=== PATIENT | male | born 1945 | race Caucasian/White ===

== ENCOUNTER 2024-07-13 13:53 | Inpatient (IN) | payer MEDICARE, BC ==
[~2024-07-13] VITALS: Ht 177.8 cm; Wt 66.0 kg
[2024-07-13] MEDS: IV NORMAL SALINE 1000 ML BAG IV ONE (14:29)
[2024-07-13] MEDS ORDERED: BISA10SU61 RC (14:50)
[2024-07-13] MEDS ORDERED: HYDR30OI5 TP (14:50)
[2024-07-13] MEDS ORDERED: DICY20TA11 PO (14:50)
[2024-07-13] MEDS ORDERED: DOCU-141 PO (14:50)
[2024-07-13] MEDS ORDERED: AMIT25TA9 PO (14:50)
[2024-07-13] MEDS ORDERED: ZOLP5TAB2 PO (14:50)
[2024-07-13] MEDS ORDERED: MAG30ORA PO (14:50)
[2024-07-13] MEDS ORDERED: LORA0.5T48 PO (14:50)
[2024-07-13] MEDS ORDERED: ALPR0.5T8 PO (14:50)
[2024-07-13] MEDS ORDERED: GABA300C PO (14:50)
[2024-07-13] MEDS ORDERED: METO-357 PO (14:50)
[2024-07-13] MEDS ORDERED: LUBI24CA5 PO (14:50)
[2024-07-13] MEDS ORDERED: CLON0.1T PO (14:50)
[2024-07-13] MEDS ORDERED: OXYC-128 PO (14:50)
[2024-07-13] MEDS ORDERED: HYDR-4077 PO (14:50)
[2024-07-13] MEDS ORDERED: METR-147 PO (14:50)
[2024-07-13] MEDS ORDERED: DULO60CA45 PO (14:50)
[2024-07-13] MEDS ORDERED: PANT40TA49 PO (14:50)
[2024-07-13] MEDS ORDERED: ACET-3117 PO (14:50)
[2024-07-13 15:02] LABS: BASOPHILS % (AUTO) 0.5 % (0.0-2.0); EOSINOPHILS # (AUTO) 0.2 K/uL (0.0-0.7); EOSINOPHILS % (AUTO) 3.6 % (0.0-7.0); HEMATOCRIT 37.7 % (36.7-47.1); HEMOGLOBIN 12.2 g/dL (12.5-16.3); MEAN CORPUSCULAR HEMOGLOBIN 28.8 uug (23.8-33.4); MEAN CORPUSCULAR HGB CONC 33 g/dL (32.5-36.3); MEAN CORPUSCULAR VOLUME 88.6 fL (73.0-96.2); MONOCYTES # (AUTO) 0.4 K/uL (0.1-1.30); MONOCYTES % (AUTO) 6.5 % (0.0-11.0); NEUTROPHILS # (AUTO) 4.5 K/uL (1.8-8.9); NEUTROPHILS % (AUTO) 72.4 % (38.5-71.5); PLATELET COUNT (AUTO) 188 K/uL (152-348); RED BLOOD CELL COUNT(AUTO) 4.26 MIL/uL (4.06-5.63); RED CELL DISTRIBUTION WIDTH 17.6 % (12.1-16.2); WHITE BLOOD COUNT (AUTO) 6.2 K/uL (3.6-10.2)
[2024-07-13 15:09] LABS: CALCIUM 8.8 mg/dL (8.5-10.1); CARBON DIOXIDE 31 mmol/L (21-32); CHLORIDE 104 mmol/L (98-107); CREATININE 0.7 mg/dL (0.6-1.3); GLUCOSE 135 mg/dL (74-106); SODIUM SERUM 140 mmol/L (136-145); UREA NITROGEN, BLOOD 8 mg/dL (7-18)
[2024-07-13 15:13] LABS: DIFFERENTIAL COMMENT 1
[2024-07-13 15:24] LABS: ALANINE AMINOTRANSFERASE 24 U/L (16-63); ALBUMIN 2.9 g/dL (3.4-5.0); ALKALINE PHOSPHATASE 46 U/L (50-136); ASPARTATE AMINOTRANSFERASE 18 U/L (15-37); BILIRUBIN,DIRECT 0.1 mg/dL (0.0-0.2); BILIRUBIN,TOTAL 0.3 mg/dL (0.2-1.0); NT-PRO BNP 3606 pg/mL (0-125); TOTAL PROTEIN, SERUM 5.6 g/dL (6.4-8.2)
[2024-07-13] MEDS ORDERED: ONDANSETRON 4 MG/2 ML VIAL IV PRN (16:45)
[2024-07-13] MEDS ORDERED: ACETAMINOPHEN 325 MG TABLET PO PRN (16:45)
[2024-07-13] MEDS ORDERED: BISACODYL 10 MG SUPP.RECT RC PRN (16:45)
[2024-07-13] MEDS ORDERED: hydrALAZINE HCL 20 MG/1 ML VIAL IV PRN (16:45)
[2024-07-13] MEDS ORDERED: DOCUSATE SODIUM 100 MG CAPSULE PO SCH (17:00)
[2024-07-13 20:50] VITALS: BP 143/90; TEMP 97.4; O2SAT 96
[2024-07-13] MEDS ORDERED: AMITRIPTYLINE HCL 25 MG TABLET ONE (23:27)
[2024-07-13] MEDS: GABAPENTIN 300 MG CAPSULE PO SCH (23:34)
[2024-07-13] MEDS: hydrALAZINE HCL 50 MG TABLET PO SCH (23:35)
[2024-07-13] MEDS: AMITRIPTYLINE HCL 25 MG TABLET PO SCH (23:35)
[2024-07-13] MEDS: DOCUSATE SODIUM 100 MG CAPSULE PO SCH (23:36)
[2024-07-13] MEDS: HEPARIN SODIUM,PORCINE 5,000 UNITS/ML VIAL SQ SCH (23:42)
[2024-07-14] MEDS: MORPHINE SULFATE 2 MG/1 ML DISP.SYRIN IVP PRN (03:18)
[2024-07-14] MEDS: IV NS 1000 ML 1,000 ML IV SCH (03:23)
[2024-07-14] MEDS: LORAZEPAM 0.5 MG TABLET PO PRN (04:50)
[2024-07-14 06:00] VITALS: BP 106/59; TEMP 97.8; O2SAT 93
[2024-07-14 07:30] LABS: BASOPHILS # (AUTO) 0.1 K/UL (0.0-0.2); BASOPHILS % (AUTO) 0.8 % (0.0-2.0); EOSINOPHILS # (AUTO) 0.3 K/uL (0.0-0.7); EOSINOPHILS % (AUTO) 4.6 % (0.0-7.0); HEMOGLOBIN 11.5 g/dL (12.5-16.3); LYMPHOCYTES # (AUTO) 1.2 K/uL (0.8-4.8); LYMPHOCYTES % (AUTO) 18.8 % (20.5-51.5); MEAN CORPUSCULAR HEMOGLOBIN 29.7 uug (23.8-33.4); MEAN CORPUSCULAR HGB CONC 34 g/dL (32.5-36.3); MONOCYTES # (AUTO) 0.5 K/uL (0.1-1.30); MONOCYTES % (AUTO) 7.1 % (0.0-11.0); NEUTROPHILS # (AUTO) 4.4 K/uL (1.8-8.9); NEUTROPHILS % (AUTO) 68.7 % (38.5-71.5); PLATELET COUNT (AUTO) 178 K/uL (152-348); RED BLOOD CELL COUNT(AUTO) 3.86 MIL/uL (4.06-5.63); RED CELL DISTRIBUTION WIDTH 17.1 % (12.1-16.2); WHITE BLOOD COUNT (AUTO) 6.5 K/uL (3.6-10.2)
[2024-07-14 07:36] LABS: DIFFERENTIAL COMMENT 1
[2024-07-14 07:55] LABS: ALANINE AMINOTRANSFERASE 23 U/L (16-63); ALBUMIN 2.7 g/dL (3.4-5.0); ASPARTATE AMINOTRANSFERASE 12 U/L (15-37); BILIRUBIN,TOTAL 0.4 mg/dL (0.2-1.0); CALCIUM 8.3 mg/dL (8.5-10.1); CARBON DIOXIDE 28 mmol/L (21-32); CHLORIDE 106 mmol/L (98-107); CREATININE 0.5 mg/dL (0.6-1.3); GLUCOSE 77 mg/dL (74-106); PHOSPHOROUS 3.1 mg/dL (2.5-4.9); POTASSIUM 3.7 mmol/L (3.5-5.1); SODIUM SERUM 140 mmol/L (136-145); TOTAL PROTEIN, SERUM 5.5 g/dL (6.4-8.2); UREA NITROGEN, BLOOD 7 mg/dL (7-18)
[2024-07-14] MEDS: PANTOPRAZOLE SODIUM 40 MG TABLET.DR PO SCH (08:47)
[2024-07-14] MEDS: MIRALAX 17 GM POWD.PACK PO SCH (08:48)
[2024-07-14] MEDS: METOPROLOL SUCCINATE XL 50 MG TAB.SR.24H PO SCH (08:48)
[2024-07-14] MEDS: DULOXETINE 60 MG CAPSULE.DR PO SCH (08:48)
[2024-07-14 09:54] LABS: ALKALINE PHOSPHATASE 43 U/L (50-136)
[2024-07-14] MEDS: PREGABALIN 25 MG CAPSULE PO SCH (10:52)
[2024-07-14 11:10] VITALS: BP 116/65; TEMP 97.8; O2SAT 93
[2024-07-14] MEDS: SHARK LIVER OIL/PETROLAT OINT 60 GM TUBE RC SCH (12:32)
[2024-07-14 16:05] VITALS: BP 136/71; TEMP 97.9; O2SAT 97
[2024-07-14 19:00] VITALS: BP 98/56; TEMP 98.7; O2SAT 96
[2024-07-15] MEDS ORDERED: IV NS 1000 ML 1,000 ML IV PRN (05:08)
[2024-07-15 05:41] VITALS: O2SAT 97
[2024-07-15 06:08] VITALS: BP 116/58; TEMP 97.9; O2SAT 97
[2024-07-15 10:58] VITALS: BP 119/53; TEMP 97.5; O2SAT 94
[2024-07-15] MEDS: BISACODYL 10 MG SUPP.RECT RC PRN (11:30)
[2024-07-15 12:52] VITALS: BP 119/53
[2024-07-15] MEDS: MAGNESIUM HYDROXIDE 30 ML LIQUID UDC PO ONE (12:52)
== END 2024-07-15 14:00 | disposition home health service (06) | DRG 641 ==
LOC: ER 13:53 → MEDSURG3 20:32
PROVIDERS: ADMIT Internal Medicine; ATTEND Internal Medicine
DX: E86.0 Dehydration (principal); G82.20 Paraplegia, unspecified; E44.1 Mild protein-calorie malnutrition; T14.8XXS Other injury of unspecified body region, sequela; X58.XXXS Exposure to other specified factors, sequela; I95.9 Hypotension, unspecified; K21.9 Gastro-esophageal reflux disease without esophagitis; Z87.440 Personal history of urinary (tract) infections; G47.30 Sleep apnea, unspecified; K62.89 Other specified diseases of anus and rectum; F03.90 Unspecified dementia, unspecified severity, without behavioral disturbance, psychotic disturbance, mood disturbance, and anxiety; E88.09 Other disorders of plasma-protein metabolism, not elsewhere classified; E87.1 Hypo-osmolality and hyponatremia
CPT/HCPCS: 36415; 71045; 83605; 84100; 85025; 87040; A4606; A4663; A6213; A9150; G0378; J1644; J2270; J7040